=== PATIENT | female | born 1960 | race Caucasian/White ===

== ENCOUNTER 2017-12-13 15:33 | Emergency (ER) | payer OTHER ==
[~2017-12-13] VITALS: Ht 165.1 cm; Wt 77.1 kg
== END 2017-12-13 20:30 | disposition home or self-care (01) ==
LOC: ER 15:33
DX: M13.861 Other specified arthritis, right knee (principal)

== ENCOUNTER 2018-04-13 18:44 | Emergency (ER) | payer OTHER ==
[~2018-04-13] VITALS: Ht 162.6 cm; Wt 74.8 kg
[2018-04-13] MEDS ORDERED: [UNRECOGNIZED DRUG - OTHER] (18:55)
[2018-04-13] MEDS ORDERED: INFANT'S I50 MG/1.21 (18:56)
== END 2018-04-13 21:53 | disposition home or self-care (01) ==
LOC: ER 18:44
DX: S80.01XA Contusion of right knee, initial encounter (principal); W01.0XXA Fall on same level from slipping, tripping and stumbling without subsequent striking against object, initial encounter; Y93.89 Activity, other specified; Y92.098 Other place in other non-institutional residence as the place of occurrence of the external cause; Y99.8 Other external cause status

== ENCOUNTER 2024-08-02 13:01 | Emergency (ER) | payer OTHER ==
[~2024-08-02] VITALS: Ht 152.4 cm; Wt 63.5 kg
[~2024-08-02 13:01] MED LIST: INFANT'S I50 MG/1.21; [UNRECOGNIZED DRUG - OTHER]
[2024-08-02] MEDS ORDERED: GUAIFEN/DEXTROMETHORPHAN/PE 10 ML BLIST.PACK PO ONE (16:30)
[2024-08-02] MEDS ORDERED: ONDANSETRON HCL 2 MG/ML VIAL IV ONE (16:30)
[2024-08-02 16:49] LABS: HEMATOCRIT 34.1 % (36.0-45.00); HEMOGLOBIN 11.7 g/dL (12.0-15.00); MEAN CELL VOLUME 83.2 fL (80.00-100.00); MEAN CORPUSCULAR HEMOGLOBIN 28.7 pg (27.00-32.0); MEAN CORPUSCULAR HGB CONC 34.4 g/dl (32.0-36.0); PLATELET COUNT 231 K/uL (150-450); RED CELL DISTRIBUTION WIDTH 11.9 % (11.5-14.5)
[2024-08-02 17:07] LABS: PH,URINE 7.5 (5.0-8.0); URINE APPEARANCE Clear; URINE BILIRRUBIN Negative (NEGATIVE); URINE BLOOD Negative; URINE COLOR Yellow; URINE GLUCOSE Negative (NEGATIVE); URINE KETONE Negative (NEGATIVE); URINE LEUKOCYTE Moderate; URINE NITRATE Negative; URINE PROTEIN Negative (NEGATIVE); URINE UROBILINOGEN 0.2 E.U./dl
[2024-08-02 17:11] LABS: URINE BACTERIA 395.2 uL (0.0-1933); URINE EPITHELIAL CELLS 15.9 uL (0.0-38.8); URINE RBC 3.9 uL (0.0-20.8); URINE WBC 97.8 uL (0.0-23.2)
[2024-08-02 17:11] LABS: CALCIUM 9.7 mg/dL (8.5-10.1); GFR 241.77; POTASSIUM 3.42 mEq/L (3.5-5.1)
[2024-08-02 17:14] LABS: CREATININE SERUM 0.28 mg/dL (0.55-1.02)
[2024-08-02] MEDS ORDERED: PEPCID AC20 MG PO (18:46)
[2024-08-02] MEDS ORDERED: ZOFRAN8 MG PO (18:46)
[2024-08-02] MEDS ORDERED: BACTRIM DS TAB1 EACH PO (18:46)
== END 2024-08-02 21:14 | disposition home or self-care (01) ==
LOC: ER 13:04
PROVIDERS: Emergency Medicine
DX: N39.0 Urinary tract infection, site not specified (principal); R53.81 Other malaise; Z20.822 Contact with and (suspected) exposure to COVID-19
CPT/HCPCS: 36415; 71046; 96365; 99283; J2405